=== PATIENT | female | born 1950 | race Caucasian/White ===

== ENCOUNTER 2019-05-11 12:34 | Outpatient (CLI) | payer MEDICARE, OTHER, SELFPAY ==
[2019-05-11 13:34] LABS: Basophils # 0.1 10^3/uL (0.0-0.1); Basophils % 0.6 %; Eosinophils # 0.1 10^3/uL (0.0-0.8); Eosinophils % 1.4 %; Hematocrit 44.4 % (37.0-47.0); Lymphocytes # 1.6 10^3/uL (0.8-4.8); Lymphocytes % 20.1 %; Mean Corpuscular HGB Conc 31.5 g/dL (30.0-36.0); Mean Corpuscular Hemoglobin 29.4 pg (28.0-34.0); Mean Corpuscular Volume 93.3 fL (81-99); Mean Platelet Volume 9.6 fL (7.4-10.4); Monocytes # 0.4 10^3/uL (0.2-0.9); Monocytes % 5.6 %; Neutrophils # 5.7 10^3/uL (1.8-7.7); Neutrophils % 71.9 %; Nucleated Red Blood Cells % 0 %; Platelet Count 297 10^3/cmm (130-400); Red Blood Count 4.76 10^6/uL (4.1-5.3); Red Cell Distribution Width 20.1 % (12.1-15.1); White Blood Count 7.9 10^3/uL (4.0-10.0)
== END 2019-05-11 12:35 | disposition home or self-care (01) ==
LOC: ONCMED 12:36
PROVIDERS: Family Provider Student in an Organized Health Care Education/Training Program; Visit Provider Nurse Practitioner
DX: D50.9 Iron deficiency anemia, unspecified (principal)
CPT/HCPCS: 85025

== ENCOUNTER 2019-05-13 12:20 | Outpatient (CLI) | payer MEDICARE, OTHER, SELFPAY ==
[2019-05-13 14:08] LABS: Alanine Aminotransferase 14 U/L (0-33); Albumin Level 4.7 g/dL (3.5-5.2); Alkaline Phosphatase 83 IU/L (35-105); Aspartate Amino Transferase 20 U/L (0-32); Blood Urea Nitrogen 19 mg/dL (8-23); Calcium 10.3 mg/Dl (8.8-10.2); Carbon Dioxide 26 mmol/L (22-29); Chloride 91 mmol/L (98-107); Globulin 2.7 g/dL (1.3-4.6); Glucose 82 mg/dL (74-106); Sodium 128 mmol/L (136-145); Total Bilirubin 0.2 mg/dL (0.15-1.2); Total Protein 7.4 g/dL (6.6-8.7)
[2019-05-13 15:05] LABS: Ferritin 262 ng/mL (15-150); Iron 61 ug/dL (37-145); Percent Saturation 20.8 % (20-50); Total Iron Binding Capacity 293 mg/dL; Unsaturated Iron Binding 232 ug/dL (112-347)
--- NOTE | 2019-05-16 20:22 | ONC FU_ITS ---
Dr. Gonzalez Patient Follow-Up Note Patient: Eri Schuler Unit #: [id number]: 1950 Dicatated By: Haroon Gonzalez M.D.Date of Visit:May 13, 2019 Onc Med Follow-up/Prog Note Chief Complaint: Anemia. History of Present Illness: This is a 69 year-old woman with iron deficiency anemia. She had been seen here by Dr. Messi Vargas on 03/03/2018 with a moderately severe, hypochromic/microcytic anemia. Her CBC showed hemoglobin low at 8.3 g with MCV 70.4. Her serum iron studies showed low transferrin saturation at 3.3%, and the ferritin was low at 12.7 ng/mL, consistent with iron deficiency. She had required transfusion the preceeding September, and she was found to have polyps on colonoscopy in December. Following her visit with Dr. Vargas she was given parenteral iron replacement with 2 infusions of Injectafer, as she had been intolerant of oral iron supplements. She tolerated the infusions well. She had a very good clinical response with her repeat CBC on 05/05/2018 showed hemoglobin up to 14.5 g, and her transferrin saturation was normal at 29%. As of 02/09/2019, her hemoglobin had dropped back down to 9.8 g. Her transferrin saturation was low at 10.5%. She was seen for a followup visit on 03/31/2019. Her hemobglobin had further declined to 9.8g, and she was then given further parenteral iron replacement with 2 additional infusions of Injectafer. She is seen for a followup visit. She has been feeling better following the iron infusions in March. Her energy is pretty good. She has had improvement in her activity tolerance. Her appetite is good. She has not had fever. She occasionally has hot flashes. She does not complain of cough, and she does not have shortness of breath. She has occasional twinges of pain in her chest. She has no GI complaints. She has urinary frequency and urgency, and she has some bladder incontinence. She has pain in her right knee and right shoulder. She sometimes has numbness in her fingers. Medications: Aldactone 1 Tablet (of 50 mg) Oral daily, Aspirin 81 1 Tablet (of 81 mg) Tablet, chewable Oral daily, Atorvastatin Calcium 1 Tablet (of 80 mg) Oral daily, BusPIRone HCl 0.5 - 1 Tablet (of 10 mg) Oral daily, CeleXA 1 Tablet (of 20 mg) Oral daily, CeleXA 1 Tablet (of 20 mg) Oral daily, Clopidogrel Bisulfate 1 Tablet (of 75 mg) Oral daily, Furosemide (40 mg) Tablet Oral Take as Directed, Hydrocodone-Acetaminophen 1 Tablet (of 10-325 mg) Oral PRN, Lisinopril 1 Tablet (of 20 mg) Oral daily, Metoprolol Tartrate 0.5 Tablet (of 100 mg) Oral b.i.d., Multivitamin Adults 1 Tablet Oral daily, Nitroglycerin Tablet, sublingual Sublingual PRN, Omeprazole 1 Tablet (of 20 mg) Tablet, enteric coated Oral daily Allergies: Sulfa Antibiotics Review of Systems: Constitutional - Her energy is good. She feels better and her energy picks up after getting Injectafer. She does light work at home. Her appetite is good and weight is stable. No fever or chills. She has occasional night sweats. ECOG score is 1, ENMT - She has sinus congestion/drainage. No mouth sores. No sore throat or difficulty swallowing, Hematologic/Lymphatic - She bruises easily, Respiratory - No shortness of breath. No cough. No pleuritic pain or hemoptysis, Cardiovascular - She had an episode of chest pain about a week ago. She took a Nitro and it resolved. No palpitations, Gastrointestinal - No nausea or vomiting. No heartburn or acid reflux. No diarrhea or constipation. No blood in the stool or black stools, Genitourinary (F) - No dysuria or hematuria. She has urinary frequency. She has urgency with incontinence, Musculoskeletal - She has pain in her right knee and right shoulder, Integumentary - No skin complications, Neurologic - No headache or dizziness. She has occasional numbness in her fingers, Psychiatric - No anxiety or depression. No insomnia. Vital Signs: Performed on May 13, 2019 13:26 Height - 63.00 in Weight - 150.2 lbs BSA - 1.71 sq.m BMI - 26.61 Temperature - 98.3 F (LOW) Pulse - 60 /min Respiration - 22 /min BP - 100/55 mm(hg) O2 Sat - 96 % Pain - 8 Physical Examination: Constitutional - She looks pretty good generally, Eyes - Sclerae nonicteric. Conjunctivae clear, ENMT - No lesions noted in the oral cavity, Hematologic/Lymphatic - No cervical, clavicular, or axillary adenopathy, Respiratory - Lungs are clear with some decrease in air movement bilaterally, Cardiovascular - Heart rhythm is regular. There is no murmur, gallop, or rub noted, Abdomen - Soft. Liver and spleen are not enlarged. There is no abdominal mass or ascites noted and there is no inguinal adenopathy, Extremities - No edema. She has extensive purpura, Neurologic - No focal neurologic deficits noted. Lab/Imaging: Test performed on May 13, 2019 12:41 Ferritin 262 ng/mL % Iron Saturation 20.8 % Glucose 82 mg/dL BUN 19 mg/dL Iron, Total 61 mcg/dL Creatinine 1.0 mg/dL TIBC 293 mcg/dL Cr Clearance (Est) 55.50 mL/min Sodium 128 mmol/L Potassium 5.0 mmol/L Chloride 91 mmol/L CO2 26 mmol/L Calcium 10.3 mg/dL Protein, Total 7.4 g/dL Albumin 4.7 g/dL Bilirubin, Total 0.2 mg/dL Alkaline Phosphatase 83 IU/L AST (SGOT) 20 IU/L ALT (SGPT) 14 IU/L Test performed on May 11, 2019 12:47 WBC 7.9 10^9/L RBC 4.76 10^12/L HGB 14.0 g/dL HCT 44.4 % MCV 93.3 fl MCH 29.4 pg MCHC 31.5 g/dL RDW 20.1 % Platelet Count 297 10^9/L MPV 9.6 fL Neutrophils (Gran) 5.7 10^9/L Lymphocytes 1.6 10^9/L Monocytes 0.4 10^9/L Eosinophils 0.1 10^9/L Basophils 0.1 10^9/L Manual Lymphocytes 20.1 % Manual Monocytes 5.6 % Manual Eosinophils 1.4 % Manual Basophils 0.6 % NRBCs 0.0 /100 WBC Test performed on Mar 31, 2019 13:17 UIBC 381 ug/dL Neutrophil % 72.5 % Lymphocyte % 17.3 % Monocyte % 6.3 % Eosinophil % 2.7 % Basophils % 0.7 % Impression: 1. Patient with iron deficiency anemia, cause uncertain. She had been intolerant of oral iron supplements. 2. She was found to have 3 polyps on colonoscopy in December 2017. 3. She also has GERD symptoms. Her other medical illnesses include: 4. Hypertension. 5. Hyperlipidemia. 6. Coronary artery disease. 7. Congestive heart failure. 8. Degenerative arthritis with chronic pain. She was given parenteral iron replacement with Injectafer in February 2018. She had a very good clinical response. However, by January 2019 she was mildly anemic again, and her serum iron studies were consistent with iron deficiency. She was further given parenteral iron replacement with 2 additional infusions of Injectafer in March 2019. She tolerated it well. She again has had a very good clinical response. Plan: She will remain on observation/expectant management. She will continue her regular follow-up with Dr. Vargas. She is to have blood counts rechecked at least every 3 to 6 months. I can see her again as needed for recurrence of the anemia. Signed By: Haroon Gonzalez M.D. <<Signature on File>>
== END 2019-05-13 12:21 | disposition home or self-care (01) ==
PROVIDERS: Family Provider Student in an Organized Health Care Education/Training Program; PCP Pediatrics; Visit Provider Internal Medicine Medical Oncology
DX: D50.9 Iron deficiency anemia, unspecified (principal); K21.9 Gastro-esophageal reflux disease without esophagitis; E78.5 Hyperlipidemia, unspecified; I25.10 Atherosclerotic heart disease of native coronary artery without angina pectoris; I50.9 Heart failure, unspecified; I11.0 Hypertensive heart disease with heart failure; G89.29 Other chronic pain; M19.90 Unspecified osteoarthritis, unspecified site; Z79.82 Long term (current) use of aspirin; Z79.899 Other long term (current) drug therapy; Z86.010 Personal history of colon polyps
CPT/HCPCS: 80053; 82728; 83540; 83550; G0463

== ENCOUNTER 2019-06-06 13:00 | Outpatient (CLI) | payer MEDICARE, OTHER, SELFPAY ==
[2020-06-06 17:38] LABS: Basophils # 0.1 10^3/uL (0.0-0.1); Basophils % 1.1 %; Eosinophils # 0.2 10^3/uL (0.0-0.8); Eosinophils % 2.1 %; Hematocrit 34.9 % (37.0-47.0); Hemoglobin 10.5 g/dL (11.5-15.3); Lymphocytes # 1.8 10^3/uL (0.8-4.8); Lymphocytes % 19.1 %; Mean Corpuscular HGB Conc 30.1 g/dL (30.0-36.0); Mean Corpuscular Hemoglobin 23.4 pg (28.0-34.0); Mean Corpuscular Volume 77.7 fL (81-99); Mean Platelet Volume 9.7 fL (7.4-10.4); Monocytes # 0.8 10^3/uL (0.2-0.9); Monocytes % 7.9 %; Neutrophils # 6.59 10^3/uL (1.8-7.7); Neutrophils % 69.6 %; Nucleated Red Blood Cells % 0 %; Platelet Count 362 10^3/cmm (130-400); Red Blood Count 4.49 10^6/uL (4.1-5.3); Red Cell Distribution Width 17.4 % (12.1-15.1); White Blood Count 9.5 10^3/uL (4.0-10.0)
[2020-06-06 18:01] LABS: Alanine Aminotransferase 6 U/L (0-33); Albumin Level 4.4 g/dL (3.5-5.2); Alkaline Phosphatase 64 IU/L (35-105); Anion Gap 15.5 (5-19); Aspartate Amino Transferase 13 U/L (0-32); Blood Urea Nitrogen 22 mg/dL (8-23); Calcium 9.5 mg/dL (8.5-10.5); Carbon Dioxide 25 mmol/L (22-29); Chloride 97 mmol/L (98-107); Ferritin 25 ng/mL (15-150); Globulin 2.6 g/dL (1.3-4.6); Glucose 84 mg/dL (65-115); Iron 23 ug/dL (37-145); Osmolality Calculated 279 mOsm/kg (285-295); Percent Saturation 5.5 % (20-50); Potassium 4.5 mmol/L (3.5-5.1); Sodium 133 mmol/L (136-145); Total Bilirubin 0.3 mg/dL (0.15-1.2); Total Iron Binding Capacity 413 mcg/dl; Unsaturated Iron Binding 390 ug/dL (112-347)
== END 2019-06-06 13:01 | disposition home or self-care (01) ==
LOC: ONCMED 06-06 17:54
PROVIDERS: PCP Pediatrics; Visit Provider Internal Medicine Medical Oncology
DX: D50.8 Other iron deficiency anemias (principal)
CPT/HCPCS: 80053; 82728; 83540; 83550; 85025

== ENCOUNTER 2020-06-26 14:19 | Outpatient (CLI) | payer MEDICARE, OTHER, SELFPAY ==
[2020-06-26] MEDS: ferric carboxy (IVPB) 750 MG in sodium chloride 0.9% (100 ml) 100 ML 460 MG IV (16:10)
--- NOTE | 2020-06-30 15:22 | ONC FU_ITS ---
Dr. Gonzalez Patient Follow-Up Note Patient: Eri Schuler Unit #: [id number]: 1950 Dicatated By: Haroon Gonazlez M.D.Date of Visit:Jun 26, 2020 Onc Med Follow-up/Prog Note Chief Complaint: Anemia. History of Present Illness: This is a 70 year-old woman with iron deficiency anemia. She had been seen here by Dr. Messi Vargas on 03/03/2018 with a moderately severe, hypochromic/microcytic anemia. Her CBC showed hemoglobin low at 8.3 g with MCV 70.4. Her serum iron studies showed low transferrin saturation at 3.3%, and the ferritin was low at 12.7 ng/mL, consistent with iron deficiency. She had required transfusion the preceeding September, and she was found to have polyps on colonoscopy in December. Following her visit with Dr. Vargas she was given parenteral iron replacement with 2 infusions of Injectafer, as she had been intolerant of oral iron supplements. She tolerated the infusions well. She had a very good clinical response with her repeat CBC on 05/05/2018 showed hemoglobin up to 14.5 g, and her transferrin saturation was normal at 29%. As of 02/09/2019, her hemoglobin had dropped back down to 9.8 g. Her transferrin saturation was low at 10.5%. She was seen for a followup visit on 03/31/2019. Her hemobglobin had further declined to 9.8g, and she was then given further parenteral iron replacement with 2 additional infusions of Injectafer. She had a good response with her repeat CBC on 05/05/2019 showing increased hemoglobin to 14.5 g. She had then continued her regular follow-up with Dr. Frost. She is seen now for a follow-up visit. She says she has been going downhill since . She she has had recurrence of anemia, and she apparently also has required treatment for congestive heart failure. She has limited activity tolerance, though she is still able to do some light housework. Her ECOG score is 1. Her appetite has not been good. She has not had fever. She does report having some sweating at night. She is short of breath at times. She has sinus drainage and she has cough off and on. She does not complain of chest pain. She has no GI complaints other than 1 recent episode of nausea. She has not been aware of any blood in the stool. She has frequent urination. She has pain in both knees, right worse than left, and she also has pain in her right shoulder. She has some numbness/tingling in her fingers. Medications: Aldactone 1 Tablet (of 50 mg) Oral daily, Aspirin 81 1 Tablet (of 81 mg) Tablet, chewable Oral daily, Atorvastatin Calcium 1 Tablet (of 20 mg) Oral daily, BusPIRone HCl 0.5 - 1 Tablet (of 10 mg) Oral daily, CeleXA 1 Tablet (of 20 mg) Oral daily, CeleXA 1 Tablet (of 20 mg) Oral daily, Clopidogrel Bisulfate 1 Tablet (of 75 mg) Oral daily, Furosemide (40 mg) Tablet Oral b.i.d., Hydrocodone-Acetaminophen 1 Tablet (of 10-325 mg) Oral PRN, Lisinopril 1 Tablet (of 20 mg) Oral daily, Metoprolol Tartrate 0.5 Tablet (of 100 mg) Oral b.i.d., Multivitamin Adults 1 Tablet Oral daily, Nitroglycerin Tablet, sublingual Sublingual PRN, Omeprazole 1 Tablet (of 20 mg) Tablet, enteric coated Oral daily Allergies: Sulfa Antibiotics Vital Signs: Performed on Jun 26, 2020 15:43 Height - 63.00 in Weight - 152.8 lbs (HIGH) BSA - 1.72 sq.m BMI - 27.07 Temperature - 99.5 F (HIGH) Pulse - 89 /min Respiration - 18 /min BP - 124/77 mm(hg) O2 Sat - 97 % Pain - 3 Fatigue - 6 Physical Examination: Constitutional - She appears somewhat weak generally, Eyes - Sclerae nonicteric. Conjunctivae clear, ENMT - No lesions noted in the oral cavity, Hematologic/Lymphatic - No cervical, clavicular, or axillary adenopathy, Respiratory - Lungs sound clear with some decrease in air movement bilaterally, Cardiovascular - Heart rhythm is regular. There is no murmur, gallop, or rub noted, Abdomen - Soft. Liver and spleen are not enlarged. There is no abdominal mass or ascites noted and there is no inguinal adenopathy, Extremities - No edema. There are scattered purpuric lesions, Neurologic - She has a mild tremor. She does not appear to have any focal neurologic deficit. Lab/Imaging: Test performed on Jun 06, 2020 13:00 Ferritin 25 ng/mL Iron 23 mcg/dL Sodium 133 mmol/L Iron Binding Capacity (TIBC) 413 mcg/dl Potassium 4.5 mmol/L % Iron Saturation 5.5 % Chloride 97 mmol/L CO2 25 mmol/L UIBC 390 mcg/dL Anion Gap 15.5 BUN 22 mg/dL Creatinine 0.8 mg/dL Cr Clearance (Est) 68.3700 mL/min Glucose 84 mg/dL Osmolality - Calculated 279 mOsm/kg Calcium 9.5 mg/dL Protein, Total 7.0 g/dL Albumin 4.4 g/dL Globulin 2.6 g/dL Bilirubin, Total 0.3 mg/dL ALT (SGPT) 6 U/L AST (SGOT) 13 U/L Alkaline Phosphatase 64 IU/L WBC 9.5 10 3/uL RBC 4.49 10 6/uL HGB 10.5 g/dL HCT 34.9 % MCV 77.7 fL MCH 23.4 pg MCHC 30.1 g/dL RDW 17.4 % Platelet Count 362 10 3/cmm MPV 9.7 fL Neutrophils 6.59 10 3/uL Lymphocytes 1.8 10 3/uL Monocytes 0.8 10 3/uL Eosinophils 0.2 10 3/uL Basophils 0.1 10 3/uL Neutrophil % 69.6 % Lymphocyte % 19.1 % Monocyte % 7.9 % Eosinophil % 2.1 % Basophils % 1.1 % NRBC % 0 % Problem List: 1. Patient with iron deficiency anemia, cause uncertain. She had been intolerant of oral iron supplements. 2. She was found to have 3 polyps on colonoscopy in December 2017. 3. She also has GERD symptoms. 4. Hypertension. 5. Hyperlipidemia. 6. Coronary artery disease. 7. Congestive heart failure. 8. Degenerative arthritis with chronic pain. Problems Addressed with this Encounter and Plan: Patient with recurrent episodes of iron deficiency anemia, cause uncertain. She had been intolerant of oral iron supplements. She has had previous parenteral iron replacement in February 2018 and in March 2019. She has had very good clinical response to the parenteral iron. Her repeat laboratory studies on 06/06/2020 showed recurrence of anemia with her hemoglobin back down to 10.5 g. She had hypochromic/microcytic red cell indices, low transferrin saturation at 5.5%, and low serum ferritin at 25 ng/mL, consistent with iron deficiency. With those findings, she will be given parenteral iron replacement again with 2 additional infusions of Injectafer. She will be scheduled for 1-month interval follow-up lab studies. She will have further evaluation as indicated, depending on her response. Signed By: Haroon Gonzalez M.D. <<Signature on File>>
== END 2020-06-26 14:20 | disposition home or self-care (01) ==
LOC: ONCMED 14:25
PROVIDERS: PCP Pediatrics; Visit Provider Internal Medicine Medical Oncology
DX: D50.9 Iron deficiency anemia, unspecified (principal); K21.9 Gastro-esophageal reflux disease without esophagitis; I10 Essential (primary) hypertension; E78.5 Hyperlipidemia, unspecified; I25.10 Atherosclerotic heart disease of native coronary artery without angina pectoris; I50.9 Heart failure, unspecified; M19.90 Unspecified osteoarthritis, unspecified site; G89.29 Other chronic pain; Z79.899 Other long term (current) drug therapy
CPT/HCPCS: 96365; 99214; J1439

== ENCOUNTER 2020-07-03 06:16 | Outpatient (CLI) | payer MEDICARE, OTHER, SELFPAY ==
[2020-07-03] MEDS: ferric carboxy (IVPB) 750 MG in sodium chloride 0.9% (100 ml) 100 ML 460 MG IV (14:20)
== END 2020-07-03 06:17 | disposition home or self-care (01) ==
LOC: ONCMED 06:19
PROVIDERS: PCP Pediatrics; Visit Provider Nurse Practitioner
DX: D50.9 Iron deficiency anemia, unspecified (principal)
CPT/HCPCS: 96365; J1439

== ENCOUNTER 2021-01-03 13:12 | Outpatient (CLI) | payer MEDICARE, OTHER, SELFPAY ==
[2021-01-03 14:22] LABS: Basophils # 0.1 10^3/uL (0.0-0.1); Basophils % 0.5 %; Eosinophils # 0.1 10^3/uL (0.0-0.8); Eosinophils % 1.4 %; Hematocrit 41.1 % (37.0-47.0); Hemoglobin 13.8 g/dL (11.5-15.3); Lymphocytes # 1.4 10^3/uL (0.8-4.8); Lymphocytes % 14.8 %; Mean Corpuscular HGB Conc 33.6 g/dL (30.0-36.0); Mean Corpuscular Hemoglobin 33.5 pg (28.0-34.0); Mean Corpuscular Volume 99.8 fl (81-99); Mean Platelet Volume 9.8 fL (7.4-10.4); Monocytes # 0.6 10^3/uL (0.2-0.9); Monocytes % 6.5 %; Neutrophils # 6.93 10^3/uL (1.8-7.7); Neutrophils % 76.3 %; Nucleated Red Blood Cells % 0 %; Platelet Count 289 10^3/cmm (130-400); Red Blood Count 4.12 10^6/uL (4.1-5.3); Red Cell Distribution Width 12.1 % (12.1-15.1); White Blood Count 9.1 10^3/uL (4.0-10.0)
[2021-01-03 14:51] LABS: Ferritin 91 ng/mL (15-150); Iron 65 ug/dL (37-145); Total Iron Binding Capacity 324 mcg/dl; Unsaturated Iron Binding 259 ug/dL (112-347)
== END 2021-01-03 13:13 | disposition home or self-care (01) ==
LOC: ONCMED 13:19
PROVIDERS: PCP Pediatrics; Visit Provider Internal Medicine Medical Oncology
DX: I25.10 Atherosclerotic heart disease of native coronary artery without angina pectoris (principal); I10 Essential (primary) hypertension; E78.5 Hyperlipidemia, unspecified; Z79.899 Other long term (current) drug therapy; Z95.5 Presence of coronary angioplasty implant and graft
CPT/HCPCS: 36415; 82728; 83540; 83550; 85025

== ENCOUNTER 2021-05-08 15:42 | Outpatient (CLI) | payer MEDICARE, OTHER, SELFPAY ==
[2021-05-08 16:45] LABS: Basophils # 0.1 10^3/uL (0.0-0.1); Basophils % 0.8 %; Eosinophils # 0.2 10^3/uL (0.0-0.8); Eosinophils % 2.4 %; Hematocrit 33.7 % (37.0-47.0); Hemoglobin 10.3 g/dL (11.5-15.3); Lymphocytes # 1.4 10^3/uL (0.8-4.8); Lymphocytes % 14.2 %; Mean Corpuscular HGB Conc 30.6 g/dL (30.0-36.0); Mean Corpuscular Hemoglobin 28.3 pg (28.0-34.0); Mean Corpuscular Volume 92.6 fl (81-99); Mean Platelet Volume 9.9 fL (7.4-10.4); Monocytes # 0.6 10^3/uL (0.2-0.9); Monocytes % 5.6 %; Neutrophils # 7.74 10^3/uL (1.8-7.7); Neutrophils % 76.6 %; Nucleated Red Blood Cells % 0 %; Platelet Count 324 10^3/cmm (130-400); Red Blood Count 3.64 10^6/uL (4.1-5.3); Red Cell Distribution Width 14.6 % (12.1-15.1); White Blood Count 10.1 10^3/uL (4.0-10.0)
--- NOTE | 2021-05-09 07:44 | ONC FU_ITS ---
Dr. Gonzalez Patient Follow-Up Note Patient: Eri Schuler Unit #: [id number]: 1950 Dicatated By: Haroon Gonzalez M.D.Date of Visit:May 08, 2021 Onc Med Follow-up/Prog Note Chief Complaint: Anemia. History of Present Illness: This is a 71 year-old woman with iron deficiency anemia. She had been seen here by Dr. Messi Vargas on 03/03/2018 with a moderately severe, hypochromic/microcytic anemia. Her CBC showed hemoglobin low at 8.3 g with MCV 70.4. Her serum iron studies showed low transferrin saturation at 3.3%, and the ferritin was low at 12.7 ng/mL, consistent with iron deficiency. She had required transfusion the preceeding September, and she was found to have polyps on colonoscopy in December. Following her visit with Dr. Vargas she was given parenteral iron replacement with 2 infusions of Injectafer, as she had been intolerant of oral iron supplements. She tolerated the infusions well. She had a very good clinical response with her repeat CBC on 05/05/2018 showed hemoglobin up to 14.5 g, and her transferrin saturation was normal at 29%. As of 02/09/2019, her hemoglobin had dropped back down to 9.8 g. Her transferrin saturation was low at 10.5%. She was seen for a followup visit on 03/31/2019. Her hemobglobin had further declined to 9.8g, and she was then given further parenteral iron replacement with 2 additional infusions of Injectafer. She had a good response with her repeat CBC on 05/05/2019 showing increased hemoglobin to 14.5 g. She had then continued her regular follow-up with Dr. Frost. Her other medical illnesses include hypertension, hyperlipidemia, and coronary artery disease, mitral regurgitation, and congestive heart failure. She also has osteoarthritis, and she has some chronic anxiety. She has had previous coronary angioplasty/stent placement and she also has a permanent pacemaker. She has a history of smoking 1/2 pack of cigarettes daily for more than 50 years. INTERIM HISTORY: As of May 2020 her hemoglobin had decreased to 10.5 g with transferrin saturation low at 5.5% and ferritin low at 25 ng/mL, consistent with iron deficiency. She was given parenteral iron replacement with 2 infusions of Injectafer. She had a good response with her hemoglobin increased to 13.7 g the following month. As of 01/03/2021 her hemoglobin remained stable at 13.8 g with transferrin saturation borderline low at 20% and ferritin normal at 91 ng/mL. She is seen for a scheduled visit. She has been feeling tired and fatigued. Her activity has been further limited by pain in her back and knees. She is still doing light work, though. Her ECOG score is 1. She has good appetite. She has not had fever. She occasionally gets overheated at night. She occasionally has sinus drainage. She has not had sore mouth or throat, and she does not complain of cough. She has shortness of breath with activity. She does not complain of chest pain. She has no GI/ complaints other than frequent urination. She does not complain of headache or dizziness. She occasionally has numbness in her hands. Medications: Aldactone 1 Tablet (of 50 mg) Oral daily, Aspirin 81 1 Tablet (of 81 mg) Tablet, chewable Oral daily, Atorvastatin Calcium 1 Tablet (of 20 mg) Oral daily, BusPIRone HCl 0.5 - 1 Tablet (of 10 mg) Oral daily, CeleXA 1 Tablet (of 20 mg) Oral daily, CeleXA 1 Tablet (of 20 mg) Oral daily, Clopidogrel Bisulfate 1 Tablet (of 75 mg) Oral daily, Furosemide (40 mg) Tablet Oral b.i.d., Hydrocodone-Acetaminophen 1 Tablet (of 10-325 mg) Oral PRN, Lisinopril 1 Tablet (of 20 mg) Oral daily, Metoprolol Tartrate 0.5 Tablet (of 100 mg) Oral b.i.d., Multivitamin Adults 1 Tablet Oral daily, Nitroglycerin Tablet, sublingual Sublingual PRN, Omeprazole 1 Tablet (of 20 mg) Tablet, enteric coated Oral daily Allergies: Sulfa Antibiotics Vital Signs: Performed on May 08, 2021 16:42 Height - 63.00 in Temperature - 98 F (LOW) Pulse - 69 /min Respiration - 18 /min BP - 105/69 mm(hg) O2 Sat - 96 % Pain - 0 Fatigue - 4 Physical Examination: Constitutional - She appears somewhat weak generally, Eyes - Sclerae nonicteric. Conjunctivae clear, ENMT - No lesions noted in the oral cavity, Hematologic/Lymphatic - No cervical, clavicular, or axillary adenopathy, Respiratory - Lungs sound clear, Cardiovascular - Heart rhythm is regular. There is a I/ systolic murmur. There is no gallop or rub noted, Abdomen - Soft. Liver and spleen are not enlarged. There is no abdominal mass or ascites noted and there is no inguinal adenopathy, Extremities - No edema. She has extensive purpura, Neurologic - She has limited mobility. She does not appear to have any focal neurologic deficit. Lab/Imaging: Test performed on May 08, 2021 16:25 WBC 10.1 10 3/uL RBC 3.64 10 6/uL HGB 10.3 g/dL HCT 33.7 % MCV 92.6 fl MCH 28.3 pg MCHC 30.6 g/dL RDW 14.6 % Platelet Count 324 10 3/cmm MPV 9.9 fL Neutrophils 7.74 10 3/uL Lymphocytes 1.4 10 3/uL Monocytes 0.6 10 3/uL Eosinophils 0.2 10 3/uL Basophils 0.1 10 3/uL Neutrophil % 76.6 % Lymphocyte % 14.2 % Monocyte % 5.6 % Eosinophil % 2.4 % Basophils % 0.8 % NRBC % 0 % Problem List: 1. Patient with iron deficiency anemia, cause uncertain. She had been intolerant of oral iron supplements. 2. She was found to have 3 polyps on colonoscopy in December 2017. 3. She also has GERD symptoms. 4. Hypertension. 5. Hyperlipidemia. 6. Coronary artery disease. 7. Congestive heart failure. 8. Degenerative arthritis with chronic pain. Problems Addressed with this Encounter and Plan: Patient with recurrent episodes of iron deficiency anemia, cause uncertain. She had been intolerant of oral iron supplements. She had responded well to parenteral iron replacement in February 2018 and in March 2019. As of May 2000 her hemoglobin had decreased to 10.5 g with low transferrin saturation and ferritin, consistent with iron deficiency. She again responded well to parenteral iron replacement with 2 infusions of Injectafer. As of December 2020 her hemoglobin remained stable at 13.8 g with transferrin saturation borderline low at 20% and ferritin normal at 91 ng/mL. She comes in now with increased fatigue and with her hemoglobin back down to 10.1 g. The results of the serum iron studies are still pending. With evidence of iron deficiency, she will have parenteral iron replacement again with 2 infusions of Injectafer. She will be scheduled for 1-month interval follow-up lab studies. Signed By: Haroon Gonzalez M.D. <<Signature on File>>
== END 2021-05-08 15:43 | disposition home or self-care (01) ==
LOC: ONCMED 15:51
PROVIDERS: PCP Pediatrics; Visit Provider Internal Medicine Medical Oncology
DX: D50.9 Iron deficiency anemia, unspecified (principal); I10 Essential (primary) hypertension; E78.5 Hyperlipidemia, unspecified; I25.10 Atherosclerotic heart disease of native coronary artery without angina pectoris; I50.9 Heart failure, unspecified; I34.0 Nonrheumatic mitral (valve) insufficiency; F41.9 Anxiety disorder, unspecified; F17.210 Nicotine dependence, cigarettes, uncomplicated; M19.90 Unspecified osteoarthritis, unspecified site; K21.9 Gastro-esophageal reflux disease without esophagitis; Z79.899 Other long term (current) drug therapy; Z79.82 Long term (current) use of aspirin; Z95.0 Presence of cardiac pacemaker
CPT/HCPCS: 36415; 85025; 99214

== ENCOUNTER 2021-05-09 10:00 | Outpatient (CLI) | payer MEDICARE, OTHER, SELFPAY ==
[2021-05-09] MEDS: ferric carboxy (IVPB) 750 MG in sodium chloride 0.9% (100 ml) 100 ML 345 MG IV (14:45)
[2021-05-09 14:46] LABS: Alanine Aminotransferase 11 U/L (0-33); Alkaline Phosphatase 46 IU/L (35-105); Anion Gap 18.4 (5-19); Aspartate Amino Transferase 19 U/L (0-32); Blood Urea Nitrogen 20 mg/dL (8-23); Calcium 8.5 mg/dL (8.5-10.5); Carbon Dioxide 21 mmol/L (22-29); Chloride 98 mmol/L (98-107); Ferritin 38 ng/mL (15-150); Globulin 2.5 g/dL (1.3-4.6); Glucose 100 mg/dL (65-115); Iron 25 ug/dL (37-145); Osmolality Calculated 279 mOsm/kg (285-295); Percent Saturation 6.6 % (20-50); Potassium 4.4 mmol/L (3.5-5.1); Sodium 133 mmol/L (136-145); Total Bilirubin 0.2 mg/dL (0.15-1.2); Total Iron Binding Capacity 376 mcg/dl; Total Protein 6.5 g/dL (6.6-8.7); Unsaturated Iron Binding 351 ug/dL (112-347)
== END 2021-05-09 10:01 | disposition home or self-care (01) ==
LOC: ONCMED 10:04
PROVIDERS: PCP Pediatrics; Visit Provider Internal Medicine Medical Oncology
DX: D50.9 Iron deficiency anemia, unspecified (principal)
CPT/HCPCS: 80053; 82728; 83540; 83550; 96365; J1439

== ENCOUNTER 2021-05-23 11:11 | Outpatient (CLI) | payer MEDICARE, OTHER, SELFPAY ==
[2021-05-23] MEDS: ferric carboxy (IVPB) 750 MG in sodium chloride 0.9% (100 ml) 100 ML 460 MG IV (12:15)
== END 2021-05-23 11:12 | disposition home or self-care (01) ==
LOC: ONCMED 11:13
PROVIDERS: PCP Pediatrics; Visit Provider Internal Medicine Medical Oncology
DX: D50.9 Iron deficiency anemia, unspecified (principal)
CPT/HCPCS: 96365; J1439

== ENCOUNTER 2021-07-04 12:52 | Outpatient (CLI) | payer MEDICARE, OTHER, SELFPAY ==
[2021-07-04 13:29] LABS: Basophils # 0.1 10^3/uL (0.0-0.1); Basophils % 0.8 %; Eosinophils # 0.2 10^3/uL (0.0-0.8); Hematocrit 34.4 % (37.0-47.0); Hemoglobin 11.3 g/dL (11.5-15.3); Lymphocytes # 1.3 10^3/uL (0.8-4.8); Lymphocytes % 17.2 %; Mean Corpuscular HGB Conc 32.8 g/dL (30.0-36.0); Mean Corpuscular Volume 97.5 fl (81-99); Mean Platelet Volume 10.1 fL (7.4-10.4); Monocytes # 0.5 10^3/uL (0.2-0.9); Monocytes % 6.6 %; Neutrophils # 5.43 10^3/uL (1.8-7.7); Neutrophils % 72.9 %; Nucleated Red Blood Cells % 0 %; Platelet Count 307 10^3/cmm (130-400); Red Blood Count 3.53 10^6/uL (4.1-5.3); Red Cell Distribution Width 15.6 % (12.1-15.1); White Blood Count 7.5 10^3/uL (4.0-10.0)
[2021-07-04 15:00] LABS: Alanine Aminotransferase 9 U/L (0-33); Albumin Level 4.6 g/dL (3.5-5.2); Alkaline Phosphatase 49 IU/L (35-105); Anion Gap 15.9 (5-19); Aspartate Amino Transferase 16 U/L (0-32); Blood Urea Nitrogen 21 mg/dL (8-23); Calcium 9.8 mg/dL (8.5-10.5); Carbon Dioxide 22 mmol/L (22-29); Chloride 97 mmol/L (98-107); Ferritin 88 ng/mL (15-150); Globulin 2.6 g/dL (1.3-4.6); Glucose 105 mg/dL (65-115); Iron 36 ug/dL (37-145); Osmolality Calculated 275 mOsm/kg (285-295); Percent Saturation 10.6 % (20-50); Potassium 3.9 mmol/L (3.5-5.1); Sodium 131 mmol/L (136-145); Total Bilirubin 0.2 mg/dL (0.15-1.2); Total Iron Binding Capacity 338 mcg/dl; Total Protein 7.2 g/dL (6.6-8.7); Unsaturated Iron Binding 302 ug/dL (112-347)
--- NOTE | 2021-07-04 15:00 | ONC FU_ITS ---
Tania Manzano Progress Note Patient: Eri Schuler Unit #: [id number]: 1950 Dicatated By: Tania Manzano N.P.Date of Visit:Jul 04, 2021 Onc MED Follow-up/Prog Note Chief Complaint: Anemia. History of Present Illness: This is a 71 year-old woman with iron deficiency anemia. She had been seen here by Dr. Messi Vargas on 03/03/2018 with a moderately severe, hypochromic/microcytic anemia. Her CBC showed hemoglobin low at 8.3 g with MCV 70.4. Her serum iron studies showed low transferrin saturation at 3.3%, and the ferritin was low at 12.7 ng/mL, consistent with iron deficiency. She had required transfusion the preceeding September, and she was found to have polyps on colonoscopy in December. Following her visit with Dr. Vargas she was given parenteral iron replacement with 2 infusions of Injectafer, as she had been intolerant of oral iron supplements. She tolerated the infusions well. She had a very good clinical response with her repeat CBC on 05/05/2018 showed hemoglobin up to 14.5 g, and her transferrin saturation was normal at 29%. As of 02/09/2019, her hemoglobin had dropped back down to 9.8 g. Her transferrin saturation was low at 10.5%. She was seen for a followup visit on 03/31/2019. Her hemobglobin had further declined to 9.8g, and she was then given further parenteral iron replacement with 2 additional infusions of Injectafer. She had a good response with her repeat CBC on 05/05/2019 showing increased hemoglobin to 14.5 g. She had then continued her regular follow-up with Dr. Frost. Her other medical illnesses include hypertension, hyperlipidemia, and coronary artery disease, mitral regurgitation, and congestive heart failure. She also has osteoarthritis, and she has some chronic anxiety. She has had previous coronary angioplasty/stent placement and she also has a permanent pacemaker. She has a history of smoking 1/2 pack of cigarettes daily for more than 50 years. INTERIM HISTORY: As of May 2020 her hemoglobin had decreased to 10.5 g with transferrin saturation low at 5.5% and ferritin low at 25 ng/mL, consistent with iron deficiency. She was given parenteral iron replacement with 2 infusions of Injectafer. She had a good response with her hemoglobin increased to 13.7 g the following month. As of 01/03/2021 her hemoglobin remained stable at 13.8 g with transferrin saturation borderline low at 20% and ferritin normal at 91 ng/mL. Patient presents today for follow-up for iron deficiency anemia. She states she is feeling well. She denies weakness or fatigue. Her appetite has been good. No fever, chills, night sweats. She denies shortness of breath, cough, chest pain. No GI problems. No hematochezia or melena. No urinary symptoms. She does have chronic joint pain bilateral knees which swell on occasion. She denies a headache, dizziness, numbness or tingling. Review Of Symptoms: see above. Past Medical History: Anxiety Congestive heart failure Coronary artery disease History of myocardial infarction Hyperlipidemia Hypertension Mitral reguritation Osteoarthritis Past Surgical History: Appendectomy Cardiac stents x 3 Coronary angioplasty Hysterectomy/bilateral salpingectomy-oophorectomy Pacemaker placement Allergies: Sulfa Antibiotics Medications: Aldactone 1 Tablet (of 50 mg) Oral b.i.d. Aspirin 81 1 Tablet (of 81 mg) Tablet, chewable Oral daily Atorvastatin Calcium 1 Tablet (of 20 mg) Oral daily BusPIRone HCl 0.5 - 1 Tablet (of 10 mg) Oral daily CeleXA 1 Tablet (of 20 mg) Oral daily CeleXA 1 Tablet (of 20 mg) Oral daily Clopidogrel Bisulfate 1 Tablet (of 75 mg) Oral daily Furosemide (40 mg) Tablet Oral b.i.d. Hydrocodone-Acetaminophen 1 Tablet (of 10-325 mg) Oral PRN Lisinopril 1 Tablet (of 20 mg) Oral daily Metoprolol Tartrate 0.5 Tablet (of 100 mg) Oral b.i.d. Multivitamin Adults 1 Tablet Oral daily Nitroglycerin Tablet, sublingual Sublingual PRN Omeprazole 1 Tablet (of 20 mg) Tablet, enteric coated Oral daily Family History: Ms. Schuler's mother is : congestive heart failure. Social History: Ms. Schuler is and she is retired. She is a daily smoker who has smoked 0.5 packs/day for 53 years. She has no history of drinking. She has indicated exposure to the following products: cigarettes. Physical Examination: Performed on Jul 04, 2021 14:42: Height - 63.00 in, Weight - 150.6 lbs (LOW), BSA - 1.71 sq.m, BMI - 26.68, Temperature - 97.9 F (LOW), Pulse - 108 /min (HIGH), Respiration - 18 /min, BP - 93/55 mm(hg), O2 Sat - 95 % (LOW), Pain - 0, and Fatigue - 4. Performance Status: 1 - No physically strenuous activity, but ambulatory and able to carry out light or sedentary work (e.g. office work, light house work). (ECOG) Constitutional Alert, cooperative, oriented. Mood and affect appropriate. Appears close to chronological age. Well nourished. Well developed. Head Normocephalic; no scars. Respiratory Lungs are clear to auscultation without rhonchi or wheezing. Cardiovascular Regular rate and rhythm of heart without murmurs, gallops or rubs. Abdomen Non-tender, non-distended, no masses, ascites or hepatosplenomegaly. Good bowel sounds. No guarding or rebound tenderness. Extremities No visible deformities. 1+ edema left lower extremity Musculoskeletal No tenderness or swelling, normal range of motion without obvious weakness. Psychiatric Alert and oriented times three. Coherent speech. Verbalizes understanding of our discussions today. Laboratory: Test performed on Jul 04, 2021 13:16 Ferritin 116 ng/mL Iron 39 mcg/dL Chloride 98 mmol/L CO2 22 mmol/L BUN 21 mg/dL Creatinine 0.7 mg/dL Cr Clearance (Est) 77.1900 mL/min Glucose 95 mg/dL Calcium 10.2 mg/dL Protein, Total 7.3 g/dL Albumin 4.4 g/dL Globulin 2.9 g/dL Bilirubin, Total 0.2 mg/dL Alkaline Phosphatase 48 IU/L WBC 7.5 10 3/uL RBC 3.53 10 6/uL HGB 11.3 g/dL HCT 34.4 % MCV 97.5 fl MCH 32.0 pg MCHC 32.8 g/dL RDW 15.6 % Platelet Count 307 10 3/cmm MPV 10.1 fL Neutrophils 5.43 10 3/uL Lymphocytes 1.3 10 3/uL Monocytes 0.5 10 3/uL Eosinophils 0.2 10 3/uL Basophils 0.1 10 3/uL Neutrophil % 72.9 % Lymphocyte % 17.2 % Monocyte % 6.6 % Eosinophil % 2.0 % Basophils % 0.8 % NRBC % 0 % Impression: 1. Patient with iron deficiency anemia, cause uncertain. She had been intolerant of oral iron supplements. 2. She was found to have 3 polyps on colonoscopy in December 2017. 3. She also has GERD symptoms. 4. Hypertension. 5. Hyperlipidemia. 6. Coronary artery disease. 7. Congestive heart failure. 8. Degenerative arthritis with chronic pain. Plan: Patient with recurrent episodes of iron deficiency anemia, cause uncertain. She had been intolerant of oral iron supplements. She had responded well to parenteral iron replacement in February 2018 and in March 2019. As of May 2000 her hemoglobin had decreased to 10.5 g with low transferrin saturation and ferritin, consistent with iron deficiency. She again responded well to parenteral iron replacement with 2 infusions of Injectafer. As of December 2020 her hemoglobin remained stable at 13.8 g with transferrin saturation borderline low at 20% and ferritin normal at 91 ng/mL. Patient presents today for follow-up. Her last Injectafer infusion was May 09 and May 23, 2021. Since that time she states she has been feeling good. Her labs are stable. Her iron studies are within normal limits. Her iron is at 39 which is on the low side of normal. Her hemoglobin is 11.3 and her hematocrit is 34.4. We will continue to monitor for now she will return to the clinic in 2 months with CBC, CMP and iron studies. Depending on what labs show iron infusion may be indicated. Signed By: Tania Manzano N.Katty <<Signature on File>>
== END 2021-07-04 12:53 | disposition home or self-care (01) ==
LOC: ONCMED 12:56
PROVIDERS: Internal Medicine Medical Oncology; PCP Pediatrics; Visit Provider Nurse Practitioner Family
DX: D50.9 Iron deficiency anemia, unspecified (principal); Z86.010 Personal history of colon polyps; E78.5 Hyperlipidemia, unspecified; I25.10 Atherosclerotic heart disease of native coronary artery without angina pectoris; I50.9 Heart failure, unspecified; I11.0 Hypertensive heart disease with heart failure; M19.90 Unspecified osteoarthritis, unspecified site; G89.4 Chronic pain syndrome; Z79.899 Other long term (current) drug therapy
CPT/HCPCS: 36415; 80053; 82728; 83540; 83550; 85025; 99214

== ENCOUNTER → 2021-07-20 10:18 | Outpatient (BNVA) | payer MEDICARE, OTHER, SELFPAY | PROVIDERS: PCP Pediatrics; Visit Provider Internal Medicine Cardiovascular Disease | DX: Z95.0 Presence of cardiac pacemaker (principal) ==

== ENCOUNTER → 2021-08-17 10:31 | Outpatient (BNVA) | payer MEDICARE, OTHER, SELFPAY | PROVIDERS: PCP Pediatrics; Visit Provider Internal Medicine Cardiovascular Disease | DX: Z45.010 Encounter for checking and testing of cardiac pacemaker pulse generator [battery] (principal) | CPT/HCPCS: 93280 ==

== ENCOUNTER 2021-09-10 10:30 | Oncology outpatient (recurring) (ONCR) | payer MEDICARE, OTHER, SELFPAY ==
[2021-09-03] MEDS: ferric carboxy (IVPB) 750 MG in sodium chloride 0.9% (100 ml) 100 ML 345 MG IV (12:26)
[2021-09-03 12:45] VITALS: BP 89/54; PULSE 69; RESP 18; TEMP 37; O2SAT 95
[2021-09-05] VITALS (11 sets, daily range): BP systolic 86–100; BP diastolic 50–94; PULSE 73–87; RESP 18; TEMP 36.6–37.3; O2SAT 96–98
[2021-09-05] MEDS: acetaminophen 325 mg Tablet 650 MG PO (10:07)
[2021-09-05] MEDS: diphenhydrAMINE 25 mg Capsule PO (10:08)
[2021-09-05] MEDS: sodium chloride 0.9% 100 mL Bag 50 ML IV (10:09)
[2021-09-05] MEDS: sodium chloride 0.9% (100 ml) 100 ML 75 ML (13:45)
[2021-09-10 11:01] VITALS: BP 120/68; PULSE 77; RESP 22; TEMP 37; O2SAT 96
[2021-09-10] MEDS: ferric carboxy (IVPB) 750 MG in sodium chloride 0.9% (100 ml) 100 ML 345 MG IV (11:07)
[2021-09-10 11:16] LABS: Basophils # 0.1 10^3/uL (0.0-0.1); Basophils % 0.8 %; Eosinophils # 0.1 10^3/uL (0.0-0.8); Eosinophils % 1.2 %; Lymphocytes # 0.7 10^3/uL (0.8-4.8); Lymphocytes % 7.2 %; Mean Corpuscular HGB Conc 29.7 g/dL (30.0-36.0); Mean Corpuscular Hemoglobin 27.9 pg (28.0-34.0); Mean Corpuscular Volume 93.9 fl (81-99); Mean Platelet Volume 11.1 fL (7.4-10.4); Monocytes # 0.5 10^3/uL (0.2-0.9); Monocytes % 5.9 %; Neutrophils # 7.62 10^3/uL (1.8-7.7); Neutrophils % 84.5 %; Nucleated Red Blood Cells % 0 %; Platelet Count 289 10^3/cmm (130-400); Red Blood Count 3.94 10^6/uL (4.1-5.3); Red Cell Distribution Width 25.2 % (12.1-15.1)
== END 2021-09-25 23:59 | disposition home or self-care (01) ==
PROVIDERS: PCP Pediatrics; Referring Provider Nurse Practitioner Family; Visit Provider Internal Medicine Medical Oncology
DX: D50.8 Other iron deficiency anemias (principal); I50.9 Heart failure, unspecified
CPT/HCPCS: 36415; 36430; 80053; 82728; 83540; 83550; 85025; 86850; 86900; 86920; 96365; 99214; 99215; 99999; J1439; P9016

== ENCOUNTER 2021-09-27 10:59 | Outpatient (CLI) | payer MEDICARE, OTHER, SELFPAY ==
[2021-09-27 11:42] LABS: Basophils # 0.1 10^3/uL (0.0-0.1); Basophils % 1.4 %; Eosinophils # 0.2 10^3/uL (0.0-0.8); Eosinophils % 2.5 %; Hematocrit 44.4 % (37.0-47.0); Hemoglobin 14.1 g/dL (11.5-15.3); Lymphocytes # 0.8 10^3/uL (0.8-4.8); Lymphocytes % 11.5 %; Mean Corpuscular HGB Conc 31.8 g/dL (30.0-36.0); Mean Corpuscular Hemoglobin 31.5 pg (28.0-34.0); Mean Corpuscular Volume 99.3 fl (81-99); Mean Platelet Volume 9.4 fL (7.4-10.4); Monocytes # 0.5 10^3/uL (0.2-0.9); Monocytes % 6.7 %; Neutrophils # 5.53 10^3/uL (1.8-7.7); Neutrophils % 77.5 %; Nucleated Red Blood Cells % 0 %; Platelet Count 264 10^3/cmm (130-400); Red Blood Count 4.47 10^6/uL (4.1-5.3); Red Cell Distribution Width 21.7 % (12.1-15.1); White Blood Count 7.1 10^3/uL (4.0-10.0)
[2021-09-27 11:58] LABS: INR 1.08 (0.83-1.21); Prothrombin Time (Patient) 14.4 Seconds (12.0-15.1)
[2021-09-27 12:04] LABS: Blood Urea Nitrogen 16 mg/dL (8-23); Calcium 9.4 mg/dL (8.5-10.5); Carbon Dioxide 23 mmol/L (22-29); Chloride 99 mmol/L (98-107); Glucose 97 mg/dL (65-115); Osmolality Calculated 279 mOsm/kg (285-295); Sodium 134 mmol/L (136-145)
[2021-09-27 12:09] LABS: Anion Gap 16.7 (5-19); Potassium 4.7 mmol/L (3.5-5.1)
== END 2021-09-27 11:00 | disposition home or self-care (01) ==
LOC: LAB 11:02
PROVIDERS: PCP Pediatrics; Visit Provider Internal Medicine Cardiovascular Disease
DX: Z45.010 Encounter for checking and testing of cardiac pacemaker pulse generator [battery] (principal); I50.9 Heart failure, unspecified
CPT/HCPCS: 36415; 80048; 85025; 85610

== ENCOUNTER 2021-10-01 08:03 | Observation (INO) | payer MEDICARE, OTHER, SELFPAY ==
[2021-10-01] VITALS (42 sets, daily range): BP systolic 74–117; BP diastolic 43–66; PULSE 57–77; RESP 13–24; TEMP 36.3–36.9; O2SAT 94–97; BMI 28.9
--- NOTE | 2021-10-01 07:05 | W.PM.OPSUD ---
Surgery/Procedure H&P Update DATE OF PROCEDURE: October 01, 2021 DATE H&P PERFORMED: 09/03/21 H&P UPDATE INFORMATION: I have reviewed H&P completed within last 30 days, I have examined patient prior to procedure and No changes to prior documentation PREOP DIAGNOSIS: PPM JSOE PRIMARY INDICATION FOR PROCEDURE: Pacemaker JOSE PLANNED PROCEDURE: Operation Date: 10/01/21 07:00 Proposed Procedures p Pacemaker Generator Change(Left) - Carolina Worthington MD PATIENT REASSESSED PRIOR TO SEDATION, WITH NO CHANGE NOTED: Yes PHYSICAL EXAM: alert, oriented x 3, clear to auscultation bilaterally, regular rate & rhythm and operative site marked AIRWAY EVAL/ANESTHESIA PLAN: normal airway, see other exam findings, ASA II, ASA III, Monitored Anesthesia, Local Anesthesia, Risks, benefits & alternatives of sedation and/or procedure discussed and Patient agrees to continue as planned
--- NOTE | 2021-10-01 08:03 | PM.OP ---
Operative Report Date of procedure: October 01, 2021 Pre-op diagnosis: Preop Diagnosis PPM JOSE Procedure: PROCEDURE: PACEMAKER REVISION PREOPERATIVE DIAGNOSIS: Pacemaker elective replacement indication. POSTOPERATIVE DIAGNOSIS: Pacemaker elective replacement indication. ESTIMATED BLOOD LOSS: Around less than 5 milliliters. COMPLICATIONS: None. BRIEF HISTORY: The patient is 71-year-old white female who had a permanent pacemaker implantation for symptomatic bradycardia. The patient was found to have elective replacement indication, during routine office followup evaluation. For further management of patient's condition, the patient required a pacemaker revision. Patient required a dual-chamber pacemaker for symptom relief and the need for AV synchrony The procedure was explained to the patient and [] in detail with the risks and benefits. The risks of bleeding, hematoma, vascular injury, infection and other concomitant complications were explained in detail, which the patient understood well and consented to proceed. PROCEDURES PERFORMED: 1. Explantation of the old pacemaker generator. 2. Implantation of the new generator. The patient brought to the Cardiac Sausage Mixer. The left side of the neck and the subclavian area were cleaned and draped in a sterile fashion. 1% Xylocaine was used for local anesthetic agent. A 2 inch long incision was made just below the previous pacemaker scar. By sharp and blunt dissection, the pacemaker pocket was accessed. The old generator was delivered from the pocket. The generator was detached from the lead. The new Medtronic generator was attached to the leads. The pacemaker pocket was copiously irrigated with vancomycin solution. Complete hemostasis was achieved. The lead was positioned behind the generator and the generator was attached to the pectoralis fascia by suturing with 0 Surgilon. Sponge counts were confirmed. The pacemaker pocket was closed in layers. Skin was approximated using 4-0 Vicryl. EXPLANTED DEVICE: Pacemaker Generator: Brand: [employer]. Model number: [id number]. Serial number: [id number]. Date of implant: 01/03/2012 Make: [employer] IMPLANTED DEVICES: Ventricular Lead: Date of implant: 01/03/2012 Brand: Fineline II Model number: [id number] Serial number: [id number] Make: Guidant Atrial lead Date of implantation: 01/03/2012 Brand: De[employer] Model number: [id number] Serial number: [id number] Make: Guidant. Implanted Generator: Date of implantation : 10/01/2021 Brand: AccolaAlvarado DR Model number: L3 3 1 Serial number: [id number] Make: [employer] Stimulation Threshold: The ventricular sensing was 19.5 millivolts. Ventricular lead impedance was 660 ohms and the pacing threshold was 0.7 volts at 0.4 milliseconds. The atrial sensing was 4.7 millivolts. Atrial lead impedance was 597 ohms and the pacing threshold was 0.7 volts at 0.4 milliseconds. The pacemaker was set for DDD mode with an upper rate of 120 and a lower rate of 60. A pressure dressing was applied over the pacemaker site. The patient was transferred back to medical floor in stable condition. Sponge counts were correct.
--- NOTE | 2021-10-01 08:24 | PC.NURSE ---
From labor delivery rn received pt from labor delivery rn post pacemaker gen change. pt is alert,orientedx4. dressing to left upper chest is c/d/i. pt denies any pain in the site. no bleeding, hematoma noted. activity restrictions discussed to pt on her left upper arm. pt teaches back. oriented pt to staff and provided call light.
[2021-10-01] MEDS: sodium chloride 0.9% 1,000 ML 75 ML IV ×2 (09:09→09:12)
[2021-10-01] MEDS: pantoprazole DR 40 mg Tablet PO (09:13)
[2021-10-01] MEDS: sodium chloride 0.9% 250 ML IV (09:20)
--- NOTE | 2021-10-01 10:42 | PC.NURSE ---
check incision site, on left upper chest. no bleeding, hematoma or swelling. pt denies any pain. cardiac monitoring. patient is av paced.
[2021-10-01] MEDS: FUROsemide 40 mg Tablet PO (17:33)
[2021-10-01] MEDS: metoprolol tartrate 50 mg Tablet PO (17:35)
[2021-10-01] MEDS: citalopram 20 mg Tablet PO (17:38)
[2021-10-01] MEDS: aspirin 81 mg EC Tablet PO (17:38)
[2021-10-02] VITALS (7 sets, daily range): BP systolic 94–114; BP diastolic 57–67; PULSE 0–76; RESP 16–17; TEMP 36.3–36.8; O2SAT 90–95
[2021-10-02] MEDS: sodium chloride 0.9% 1,000 ML 75 ML IV (03:31)
--- NOTE | 2021-10-02 06:00 | ECG_ITS ---
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 Measurements Intervals [place] Rate: 67 P: 38 VT: 173 QRS: -27 QRSD: 182 T: 96 QT: 469 QTc: 496 Interpretive Statements ELECTRONIC VENTRICULAR PACEMAKER No previous ECG available for comparison Electronically Signed On 10-02-2021 18:12:04 CDT by Titi Dueñas M.D. [id number]
[2021-10-02] MEDS: aspirin 81 mg EC Tablet PO (09:17)
[2021-10-02] MEDS: citalopram 20 mg Tablet PO (09:17)
[2021-10-02] MEDS: spironolactone 25 mg Tablet PO (09:18)
[2021-10-02] MEDS: pantoprazole DR 40 mg Tablet PO (09:18)
[2021-10-02] MEDS: lisinopril 20 mg Tablet PO (09:18)
[2021-10-02] MEDS: cholecalciferol (vitamin D3) 1,000 unit Tablet 1000 UNIT PO (09:18)
[2021-10-02] MEDS: FUROsemide 40 mg Tablet PO (09:18)
[2021-10-02] MEDS: clopidogrel 75 mg Tablet PO (09:18)
[2021-10-02] MEDS: metoprolol tartrate 50 mg Tablet PO (09:18)
--- NOTE | 2021-10-02 10:33 | PC.CHAP ---
Pastoral Care Encounter/Spiritual Assessment Type of Contact [] Declined tongue trimmer visit [] Patient/Family/Request visit [] Outpatient visit [] Follow-up visit [] Physician referral [] Code/Alert [x] Routine visit [] Staff referral [] Actively dying [] Patient sleeping [] Family support [] [] Out of room [] Palliative care [] [] Receiving care in room [] Pre-surgical visit [] Trauma [] Long length of stay [] ICU visit [] Other: Relational/Emotional Strength [x] Patient feels connected with others/family/visitors/staff [] Distress [] Loneliness/isolation [] Abandonment Spirituality of Patient [xx] Person of Ana [x] Attends Christian of their Ana [x] Believes in Prayer [] Reads Bible or Gnosticist materials [] There are Spiritual issues to be addressed Hot Box Operator Interventions [x] Prayer [x] Active listening [x] Non-anxious presence [x] Spiritual/emotional support [] Crisis/trauma care [] Spiritual counseling [] Bereavement support [] Provided bereavement packet [] Provided Bible/devotional materials [] Provided toy/stuffed animal, coloring book to patient or family member [] Provided Communion [] Anointing/[place] [] Salvation [x] Completed spiritual assessment [] Other: Impact on Illness or Injury [] Angry [] Fearful [] Anxious [] Often cries [] Exhaustion [] Unable to work [] Unable to attend gnosticism [] Unable to walk/stand [] Unable to read [] Unable to drive [] Unable to eat/drink [] Unable to sleep [] Unable to be with family [] Patient intubated [] Other: Summary Time spent with patient 10 min
== END 2021-10-02 15:00 | disposition home or self-care (01) ==
LOC: CSU 08:15 → MEDSURG 19:56
PROVIDERS: Admitting Provider Internal Medicine Cardiovascular Disease; PCP Pediatrics; Visit Provider Internal Medicine Cardiovascular Disease
DX: Z45.010 Encounter for checking and testing of cardiac pacemaker pulse generator [battery] (principal); Z79.82 Long term (current) use of aspirin; I25.10 Atherosclerotic heart disease of native coronary artery without angina pectoris; I11.0 Hypertensive heart disease with heart failure; I50.9 Heart failure, unspecified; E78.5 Hyperlipidemia, unspecified
CPT/HCPCS: 33213; 36415; 93005; 96360; 97165; 99152; 99153; C1769; C1785; G0378; J0690; J1644; J2250; J3010; J3370; J7030; J7050

== ENCOUNTER → 2021-10-09 10:40 | Outpatient (BNVA) | payer MEDICARE, OTHER, SELFPAY | PROVIDERS: PCP Pediatrics; Visit Provider Nurse Practitioner Family | DX: Z09 Encounter for follow-up examination after completed treatment for conditions other than malignant neoplasm (principal); Z95.0 Presence of cardiac pacemaker; I95.9 Hypotension, unspecified; F17.210 Nicotine dependence, cigarettes, uncomplicated | CPT/HCPCS: 99214 ==

== ENCOUNTER 2021-10-23 11:02 | Oncology outpatient (recurring) (ONCR) | payer MEDICARE, OTHER, SELFPAY ==
[2021-10-23 12:03] LABS: Basophils % 0.7 %; Eosinophils # 0.2 10^3/uL (0.0-0.8); Eosinophils % 3.1 %; Hematocrit 38.5 % (37.0-47.0); Lymphocytes # 0.8 10^3/uL (0.8-4.8); Lymphocytes % 13.2 %; Mean Corpuscular HGB Conc 33.8 g/dL (30.0-36.0); Mean Corpuscular Hemoglobin 32.6 pg (28.0-34.0); Mean Corpuscular Volume 96.5 fl (81-99); Mean Platelet Volume 9.6 fL (7.4-10.4); Monocytes # 0.4 10^3/uL (0.2-0.9); Monocytes % 6.5 %; Neutrophils # 4.45 10^3/uL (1.8-7.7); Neutrophils % 76.2 %; Nucleated Red Blood Cells % 0 %; Platelet Count 245 10^3/cmm (130-400); Red Blood Count 3.99 10^6/uL (4.1-5.3); Red Cell Distribution Width 17.1 % (12.1-15.1); White Blood Count 5.8 10^3/uL (4.0-10.0)
[2021-10-23 12:25] LABS: Alanine Aminotransferase 11 U/L (0-33); Albumin Level 4.5 g/dL (3.5-5.2); Alkaline Phosphatase 51 IU/L (35-105); Anion Gap 15.6 (5-19); Aspartate Amino Transferase 18 U/L (0-32); Blood Urea Nitrogen 19 mg/dL (8-23); Carbon Dioxide 26 mmol/L (22-29); Chloride 98 mmol/L (98-107); Ferritin 200 ng/mL (15-150); Globulin 2.3 g/dL (1.3-4.6); Glucose 94 mg/dL (65-115); Iron 94 ug/dL (37-145); Osmolality Calculated 282 mOsm/kg (285-295); Potassium 4.6 mmol/L (3.5-5.1); Sodium 135 mmol/L (136-145); Total Bilirubin 0.2 mg/dL (0.15-1.2); Total Iron Binding Capacity 303 mcg/dl; Total Protein 6.8 g/dL (6.6-8.7); Unsaturated Iron Binding 209 ug/dL (112-347)
== END 2021-10-25 23:59 | disposition home or self-care (01) ==
PROVIDERS: Nurse Practitioner Family; PCP Pediatrics; Referring Provider Nurse Practitioner Family; Visit Provider Internal Medicine Medical Oncology
DX: D50.8 Other iron deficiency anemias (principal)
CPT/HCPCS: 80053; 82728; 83540; 83550; 85025; G0463

== ENCOUNTER → 2021-12-17 10:26 | Outpatient (BNVA) | payer MEDICARE, OTHER, SELFPAY | PROVIDERS: PCP Student in an Organized Health Care Education/Training Program; Visit Provider Internal Medicine Cardiovascular Disease | DX: I11.0 Hypertensive heart disease with heart failure (principal); I50.9 Heart failure, unspecified; I25.10 Atherosclerotic heart disease of native coronary artery without angina pectoris; Z95.0 Presence of cardiac pacemaker; E78.5 Hyperlipidemia, unspecified; F17.210 Nicotine dependence, cigarettes, uncomplicated | CPT/HCPCS: 99214 ==

== ENCOUNTER → 2022-01-18 09:16 | Outpatient (BNVA) | payer MEDICARE, OTHER, SELFPAY | PROVIDERS: PCP Student in an Organized Health Care Education/Training Program; Visit Provider Internal Medicine Cardiovascular Disease | DX: Z45.010 Encounter for checking and testing of cardiac pacemaker pulse generator [battery] (principal) | CPT/HCPCS: 93280 ==

== ENCOUNTER → 2022-06-21 10:22 | Outpatient (BNVA) | payer MEDICARE, OTHER, SELFPAY | PROVIDERS: PCP Pediatrics; Visit Provider Nurse Practitioner Family | DX: I25.10 Atherosclerotic heart disease of native coronary artery without angina pectoris (principal); I11.0 Hypertensive heart disease with heart failure; I50.9 Heart failure, unspecified; Z95.0 Presence of cardiac pacemaker; Z79.82 Long term (current) use of aspirin; F17.210 Nicotine dependence, cigarettes, uncomplicated | CPT/HCPCS: 99214 ==

== ENCOUNTER 2022-11-26 10:12 | Oncology outpatient (recurring) (ONCR) | payer MEDICARE, OTHER, SELFPAY ==
[2022-11-26 10:20] VITALS: BP 107/69; PULSE 80; RESP 17; TEMP 36.6; O2SAT 95
[2022-11-26 10:28] VITALS: BMI 30.6
[2022-11-26 10:34] LABS: Basophils # 0.1 10^3/uL (0.0-0.1); Basophils % 0.7 %; Eosinophils # 0.2 10^3/uL (0.0-0.8); Eosinophils % 2.1 %; Hematocrit 44.3 % (37.0-47.0); Hemoglobin 15.1 g/dL (11.5-15.3); Lymphocytes # 1.2 10^3/uL (0.8-4.8); Lymphocytes % 14.7 %; Mean Corpuscular HGB Conc 34.1 g/dL (30.0-36.0); Mean Corpuscular Hemoglobin 31.1 pg (28.0-34.0); Mean Corpuscular Volume 91.3 fl (81-99); Mean Platelet Volume 10.5 fL (7.4-10.4); Monocytes # 0.6 10^3/uL (0.2-0.9); Monocytes % 7.1 %; Neutrophils # 6.03 10^3/uL (1.8-7.7); Neutrophils % 75.2 %; Nucleated Red Blood Cells % 0 %; Platelet Count 214 10^3/cmm (130-400); Red Blood Count 4.85 10^6/uL (4.1-5.3); Red Cell Distribution Width 13.8 % (12.1-15.1)
[2022-11-26 11:02] LABS: Alanine Aminotransferase 15 U/L (0-33); Albumin Level 4.6 g/dL (3.5-5.2); Alkaline Phosphatase 65 U/L (35-105); Aspartate Amino Transferase 24 U/L (0-32); Blood Urea Nitrogen 12 mg/dL (8-23); Calcium 10.3 mg/dL (8.5-10.5); Carbon Dioxide 29 mmol/L (22-29); Chloride 100 mmol/L (98-107); Ferritin 49 ng/mL (15-150); Globulin 2.8 g/dL (1.3-4.6); Glucose 105 mg/dL (65-115); Iron 101 ug/dL (37-145); Osmolality Calculated 294 mOsm/kg (285-295); Sodium 142 mmol/L (136-145); Total Bilirubin 0.4 mg/dL (0.15-1.2); Total Iron Binding Capacity 360 mcg/dl; Total Protein 7.4 g/dL (6.6-8.7); Unsaturated Iron Binding 259 ug/dL (112-347)
[2022-11-26 11:41] LABS: Anion Gap 16.5 (5-19); Potassium 3.5 mmol/L (3.5-5.1)
== END 2022-12-26 23:59 | disposition home or self-care (01) ==
PROVIDERS: Internal Medicine Medical Oncology; PCP Pediatrics; Visit Provider Internal Medicine Medical Oncology
DX: D50.9 Iron deficiency anemia, unspecified (principal); F17.210 Nicotine dependence, cigarettes, uncomplicated
CPT/HCPCS: 80053; 82728; 83540; 83550; 85025; 99213

== ENCOUNTER → 2023-03-17 14:57 | Outpatient (BNVA) | payer MEDICARE, OTHER, SELFPAY | PROVIDERS: PCP Pediatrics; Visit Provider Internal Medicine Cardiovascular Disease | DX: I11.0 Hypertensive heart disease with heart failure (principal); I50.9 Heart failure, unspecified; I25.10 Atherosclerotic heart disease of native coronary artery without angina pectoris; Z95.0 Presence of cardiac pacemaker; E78.5 Hyperlipidemia, unspecified; F17.210 Nicotine dependence, cigarettes, uncomplicated | CPT/HCPCS: 99214 ==